=== PATIENT | male | born 1955 | race Caucasian/White ===

== ENCOUNTER → 2017-11-18 | Outpatient (CLI) | payer BC | END | disposition home or self-care (01) | LOC: CFH 08:58 | PROVIDERS: ATTEND Internal Medicine Cardiovascular Disease | DX: I08.1 Rheumatic disorders of both mitral and tricuspid valves (principal); I48.0 Paroxysmal atrial fibrillation; I10 Essential (primary) hypertension | CPT/HCPCS: 93306 ==

== ENCOUNTER 2017-12-08 10:21 | Day surgery (SDC) | payer BC ==
[~2017-12-08] VITALS: Ht 185.4 cm; Wt 102.7 kg
[2017-12-08] MEDS ORDERED: METO25TA91 PO (11:05)
[2017-12-08] MEDS ORDERED: RIVA20TA PO (11:05)
[2017-12-08 11:42] LABS: BASOPHILS # (AUTO) 0.04 x10^3/uL (0-0.1); BASOPHILS % (AUTO) 1 % (0-1); EOSINOPHILS # (AUTO) 0.08 x10^3/uL (0-0.4); EOSINOPHILS % (AUTO) 1 % (1-7); LYMPHOCYTES # (AUTO) 2.31 x10^3/uL (1-3.4); LYMPHOCYTES % (AUTO) 32 % (22-44); MD NO; MEAN CORPUSCULAR HGB CONC 34.5 g/dL (33.2-36.2); MEAN CORPUSCULAR VOLUME 95.6 fL (81-97); MEAN PLATELET VOLUME 8.9 fL (7.4-10.4); MONOCYTES # (AUTO) 0.63 x10^3/uL (0.2-0.8); MONOCYTES % (AUTO) 9 % (2-9); NEUTROPHILS # (AUTO) 4.27 x10^3/uL (1.8-6.8); NEUTROPHILS % (AUTO) 58 % (42-75); PLATELET COUNT 241 x10^3/uL (130-400); RED BLOOD COUNT 5.16 x10^6/uL (4.38-5.82); RED CELL DISTRIBUTION WIDTH 12.6 % (9.4-14.8)
[2017-12-08 11:46] LABS: ANION GAP 8 mmol/L (5-15); CALCIUM 8.9 mg/dL (8.5-10.1); CHLORIDE 107 mmol/L (98-107); CREATININE 1.09 mg/dL (0.7-1.3)
[2017-12-08] MEDS ORDERED: MIDAZOLAM 1 MG/ML, 5ML ONE (11:56)
[2017-12-08] MEDS ORDERED: FENTANYL PF 100 MCG/2ML ONE (11:57)
== END 2017-12-08 13:23 ==
LOC: CACL 10:21
PROVIDERS: ATTEND Internal Medicine Cardiovascular Disease
DX: I48.91 Unspecified atrial fibrillation (principal); Z72.89 Other problems related to lifestyle; I10 Essential (primary) hypertension
CPT/HCPCS: 36415; 80048; 85025; 92960; J2250; J3010

== ENCOUNTER → 2017-12-30 | Outpatient (CLI) | payer BC ==
[~2017-12-30] VITALS: Ht 188 cm; Wt 102.7 kg
[~2017-12-30] MED LIST: DIGO125T PO; METO25TA91 PO; RIVA20TA PO; SOTA120T14 PO
[2017-12-30 15:05] LABS: BASOPHILS # (AUTO) 0.03 x10^3/uL (0-0.1); BASOPHILS % (AUTO) 0 % (0-1); EOSINOPHILS # (AUTO) 0.11 x10^3/uL (0-0.4); EOSINOPHILS % (AUTO) 1 % (1-7); LYMPHOCYTES # (AUTO) 2.67 x10^3/uL (1-3.4); LYMPHOCYTES % (AUTO) 31 % (22-44); MD NO; MEAN CORPUSCULAR HEMOGLOBIN 32.1 pg (27.5-34.5); MEAN CORPUSCULAR HGB CONC 33.7 g/dL (33.2-36.2); MEAN CORPUSCULAR VOLUME 95.4 fL (81-97); MEAN PLATELET VOLUME 8.4 fL (7.4-10.4); MONOCYTES # (AUTO) 0.38 x10^3/uL (0.2-0.8); MONOCYTES % (AUTO) 5 % (2-9); NEUTROPHILS # (AUTO) 5.36 x10^3/uL (1.8-6.8); NEUTROPHILS % (AUTO) 63 % (42-75); PLATELET COUNT 232 x10^3/uL (130-400); RED CELL DISTRIBUTION WIDTH 13.2 % (9.4-14.8)
[2017-12-30 15:13] LABS: ALBUMIN 3.8 g/dL (3.4-5.0); ANION GAP 10 mmol/L (5-15); CALCIUM 8.4 mg/dL (8.5-10.1); CHLORIDE 106 mmol/L (98-107)
[2017-12-30 15:16] LABS: ALANINE AMINOTRANSFERASE 85 U/L (12-78); ALKALINE PHOSPHATASE 85 U/L (45-117); BILIRUBIN,TOTAL 1.1 mg/dL (0.2-1.0); CREATININE 1.37 mg/dL (0.7-1.3); TOTAL PROTEIN 7.5 g/dL (6.4-8.2)
== END | disposition home or self-care (01) ==
LOC: STAR 14:18
PROVIDERS: ATTEND Internal Medicine Cardiovascular Disease
DX: Z01.818 Encounter for other preprocedural examination (principal); I48.0 Paroxysmal atrial fibrillation
CPT/HCPCS: 36415; 80053; 85025

== ENCOUNTER → 2017-12-30 | Outpatient (CLI) | payer BC ==
[~2017-12-30] MED LIST changes: -DIGO125T PO; +OMNIPAQUE 350 MG/ML, 150 ML BOTTLE ONE; -SOTA120T14 PO
== END | disposition home or self-care (01) ==
LOC: CFH 12:34
PROVIDERS: ATTEND Internal Medicine Cardiovascular Disease
DX: I48.0 Paroxysmal atrial fibrillation (principal)
CPT/HCPCS: 71046; 75572; Q9967

== ENCOUNTER 2018-01-05 06:29 | Inpatient (IN) | payer BC ==
[~2018-01-05] VITALS: Ht 185.4 cm; Wt 112.6 kg
[~2018-01-05 06:29] MED LIST changes: -OMNIPAQUE 350 MG/ML, 150 ML BOTTLE ONE
[2018-01-05] MEDS ORDERED: DIGO125T PO (06:47)
[2018-01-05 06:55] VITALS: BP 146/103
[2018-01-05] MEDS ORDERED: SODIUM CHLORIDE 0.9% 1,000 ML IV SCH (07:00)
[2018-01-05] MEDS ORDERED: MIDAZOLAM 1 MG/ML, 2ML ONE (07:24)
[2018-01-05] MEDS ORDERED: FENTANYL PF 250 MCG/5ML ONE (07:24)
[2018-01-05] MEDS ORDERED: ROCURONIUM 10 MG/ML,10ML ONE (08:11)
[2018-01-05] MEDS ORDERED: DEXAMETHASONE 4 MG/ML, 1ML ONE (08:11)
[2018-01-05] MEDS ORDERED: PROTAMINE SULFATE 10 MG/ML, 5ML ONE (08:16)
[2018-01-05] MEDS ORDERED: HEPARIN 1,000 UNITS/ML, 10ML ONE (08:16)
[2018-01-05] MEDS ORDERED: LIDOCAINE 1%, 50ML ONE (08:21)
[2018-01-05] MEDS ORDERED: ACETAMINOPHEN 325 MG TABLET PO PRN ×2 (11:00→11:30)
[2018-01-05] MEDS ORDERED: ZOLPIDEM 5MG TABLET PO PRN (11:00)
[2018-01-05] MEDS ORDERED: RIVAROXABAN 20 MG TABLET PO SCH ×2 (11:00→18:00)
[2018-01-05] MEDS ORDERED: SUCCINYLCHOLINE 20 MG/ML, 10ML ONE (11:04)
[2018-01-05] MEDS ORDERED: ONDANSETRON 2MG/ML, 2ML ONE ×2 (11:04)
[2018-01-05] MEDS ORDERED: PROPOFOL 10 MG/ML, 20ML ONE ×2 (11:04)
[2018-01-05] MEDS ORDERED: OXYcodone 5 MG/5 ML ORAL.SOL UDC PO PRN (11:30)
[2018-01-05] MEDS ORDERED: MORPHINE SULFATE 4 MG/ML, 1ML IVPush PRN (11:30)
[2018-01-05] MEDS ORDERED: LABETALOL 5MG/ML, 20ML IV PRN (11:30)
[2018-01-05] MEDS ORDERED: PROMETHAZINE 12.5 MG SUPP PR PRN (11:30)
[2018-01-05] MEDS ORDERED: EPHEDRINE 50 MG/ML, 1ML IM PRN (11:30)
[2018-01-05] MEDS ORDERED: MEPERIDINE/PF 25MG/0.5ML IVPush PRN (11:30)
[2018-01-05] MEDS ORDERED: ONDANSETRON ODT 8 MG PO PRN (11:30)
[2018-01-05] MEDS ORDERED: DIPHENHYDRAMINE 50 MG/ML, 1ML IVPush PRN (11:30)
[2018-01-05] MEDS ORDERED: MIDAZOLAM 1 MG/ML, 2ML IV PRN (11:30)
[2018-01-05] MEDS ORDERED: FENTANYL PF 100 MCG/2ML IV PRN (11:30)
[2018-01-05] MEDS ORDERED: PROMETHAZINE 25 MG SUPP PR PRN (11:30)
[2018-01-05] MEDS ORDERED: PROMETHAZINE 25 MG/ML, 1ML IV PRN (11:30)
[2018-01-05] MEDS ORDERED: EPHEDRINE 50 MG/ML, 1ML IVPush PRN (11:30)
[2018-01-05] MEDS ORDERED: OXYcodone 5 MG/5 ML ORAL.SOL UDC ONE (11:40)
[2018-01-05] MEDS ORDERED: APIXABAN 5 MG TABLET ONE ×2 (12:05→12:06)
[2018-01-05 12:34] VITALS: BP 112/82
[2018-01-05] MEDS ORDERED: APIXABAN 5 MG TABLET PO ONE (13:00)
[2018-01-05] MEDS: RIVAROXABAN 20 MG TABLET PO SCH (17:54)
[2018-01-05] MEDS: SOTALOL 120MG TABLET PO SCH (17:54)
[2018-01-05 19:35] VITALS: BP 118/75
[2018-01-06 00:49] VITALS: BP 99/61
[2018-01-06 08:38] VITALS: BP 111/76
[2018-01-06] MEDS ORDERED: DIGOXIN 0.125 MG TABLET PO SCH (09:00)
[2018-01-06] MEDS: SOTALOL 120MG TABLET PO SCH ×2 (09:57→17:46)
[2018-01-06 15:07] VITALS: BP 121/79
[2018-01-06] MEDS: RIVAROXABAN 20 MG TABLET PO SCH (17:47)
[2018-01-06 19:44] VITALS: BP 124/80
[2018-01-07 01:35] VITALS: BP 116/75
[2018-01-07] MEDS: SOTALOL 120MG TABLET PO SCH (06:03)
[2018-01-07 07:14] VITALS: BP 121/80
[2018-01-07] MEDS ORDERED: SOTA120T14 PO (09:48)
[2018-01-07 12:35] VITALS: BP 139/85
== END 2018-01-07 14:47 | disposition home or self-care (01) | DRG 274 ==
LOC: CACL 06:29 → ORIP 10:43 → CACL 14:45 → 5SO 14:45 → CACL 22:05 → OBSVTOIN 22:05 → 5SO 22:05
PROVIDERS: ADMIT Internal Medicine Cardiovascular Disease; ATTEND Internal Medicine Cardiovascular Disease
PROC: 4A0234Z Measurement of Cardiac Electrical Activity, Percutaneous Approach (ICD-10-PCS; 2018-01-05)
PROC: 02K83ZZ Map Conduction Mechanism, Percutaneous Approach (ICD-10-PCS; 2018-01-05)
PROC: 5A2204Z Restoration of Cardiac Rhythm, Single (ICD-10-PCS; 2018-01-05)
PROC: 02583ZZ Destruction of Conduction Mechanism, Percutaneous Approach (ICD-10-PCS; principal; 2018-01-05 08:00)
DX: I48.1 Persistent atrial fibrillation (principal); D68.69 Other thrombophilia; I11.9 Hypertensive heart disease without heart failure
CPT/HCPCS: 85347; 93005; 93308; 93312; 93320; 93321; 93325; 93613; 93656; 93662; C1732; C1766; C1893; C1894; G0378; J1100; J1644; J2250; J2405; J2704; J2720; J3010; J3490; C1730; C1759; J0330

== ENCOUNTER → 2018-07-27 | Outpatient (CLI) | payer BC ==
[~2018-07-27] MED LIST changes: +DIGO125T PO; +SOTA120T14 PO
== END | disposition home or self-care (01) ==
LOC: CFH 09:36
PROVIDERS: ATTEND Physician Assistant Surgical
DX: N31.2 Flaccid neuropathic bladder, not elsewhere classified (principal)
CPT/HCPCS: 76770